=== PATIENT | male | born 1990 | race Caucasian/White ===

== ENCOUNTER 2017-03-28 14:13 | Emergency (ER) | payer BC ==
[2017-03-28 15:16] VITALS: BP 122/77
--- NOTE | 2017-03-28 16:52 | UC ---
Pablo Chappell Benjamin, scribed for Shayla Payne MD on 03/28/17 at 1630 . Abdominal Pain Male HPI - HPI Summary HPI Summary: 26yo male c/o having abdominal pain for 3 days and diarrhea with nausea, fatigue , indigestion, and foul-smelling burps for 2 days. Pt had giardia 1 year ago in [place] and pt describes that todays symptoms are similar to his giardia 1 year ago. No blood noticed in his stool, and pt denies fever. States he lives in [place] and is on city water and has not traveled, and no one else he is close to is ill. He has not been on antibiotics recently. - History of Current Complaint Chief Complaint: UCGI Stated Complaint: DIARRHEA Hx Obtained From: Patient Onset/Duration: Gradual Onset, Lasting Days - 2-3 days, Still Present Timing: Constant Severity Initially: Mild Severity Currently: Mild Pain Intensity: 5 Pain Scale Used: 0-10 Numeric Location: Diffuse Radiates: No Character: Cramping Aggravating Factor(s):: Nothing Alleviating Factor(s): Nothing Associated Signs And Symptoms: Positive: Nausea, Diarrhea, Other - fatigue. Negative: Fever, Blood in Stool, Vomiting Similar Episode/Dx As:: giardia, in [place] - Allergies/Home Medications Allergies/Adverse Reactions: Allergies Allergy/AdvReac Type Severity Reaction Status Date / Time No Known Allergies Allergy Verified 03/28/17 15:17 Home Medications: Home Medications NK [No Home Medications Reported] 03/28/17 [History Confirmed 03/28/17] PMH/Surg Hx/FS Hx/Imm Hx Previously Healthy: No GI/ History: Other Other GI/ History: giardia - Surgical History Surgical History: None - Family History Known Family History: Negative: Cardiac Disease, Diabetes - Social History Occupation: Student - has been in [place] one year from [place] Lives: Alone Alcohol Use: Occasionally Substance Use Type: None Smoking Status (MU): Never Smoked Tobacco Review of Systems Constitutional: Fatigue Skin: Negative Eyes: Negative ENT: Negative Respiratory: Negative Cardiovascular: Negative Gastrointestinal: Abdominal Pain, Diarrhea, Nausea Genitourinary: Negative Motor: Negative Neurovascular: Negative Musculoskeletal: Negative Neurological: Negative Psychological: Negative All Other Systems Reviewed And Are Negative: Yes Physical Exam Triage Information Reviewed: Yes Appearance: Well-Appearing, No Pain Distress, Well-Nourished Vital Signs: Initial Vital Signs Temp 98.5 F 03/28/17 15:13 Pulse 90 03/28/17 15:13 Resp 18 03/28/17 15:13 BP 122/77 03/28/17 15:13 Pulse Ox 97 03/28/17 15:13 Vital Signs Reviewed: Yes Eyes: Positive: Conjunctiva Clear ENT: Positive: Hearing grossly normal. Negative: Muffled/hoarse voice Neck: Positive: Supple, Nontender Respiratory: Positive: Lungs clear, Normal breath sounds, No respiratory distress, No accessory muscle use Cardiovascular: Positive: RRR, No Murmur, Pulses Normal Abdomen Description: Positive: Nontender, No Organomegaly, Soft. Negative: Bruit, CVA Tenderness (R), CVA Tenderness (L), Distended, Guarding, Hernia @, Hepatomegaly, McBurney's Point Tenderness, Peritoneal Signs, Pulsatile Mass, Splenomegaly Bowel Sounds: Positive: Present Musculoskeletal: Positive: Strength Intact, ROM Intact Neurological: Positive: Alert, Muscle Tone Normal Psychological: Positive: Age Appropriate Behavior Skin: Negative: rashes Re-Evaluation - Re-Evaluation First Eval Re-Evaluation Time: 16:45 Change: Unchanged - pt was able to provide stool sample, soft, brown, sent for studies. Abd Pain Male Course/Dx - Course Course Of Treatment: Reviewed pt's medications list and allergies. Elevated blood pressure. - Differential Dx/Clinical Impression Differential Diagnosis/HQI/PQRI: Bowel Obstruction, Diverticulitis, Other - gastroenteritis infectious colitis Provider Diagnoses: Acute Diarrhea. abdominal pain. High blood pressure without diagnosis of hypertension. Discharge - Discharge Plan Condition: Stable Disposition: HOME Patient Education Materials: Acute Diarrhea (ED), Loperamide (By mouth) Additional Instructions: The stool samples have been sent to the lab and we will notify you if you need further treatment based on those results. You may take loperamide as directed for the diarrhea if you do not have a fever. RETURN TO URGENT CARE FOR ANY NEW OR WORSENING SYMPTOMS. The documentation as recorded by the Pablo contreras Benjamin accurately reflects the service I personally performed and the decisions made by me, Shayla Payne MD.
== END 2017-03-28 16:51 | disposition home or self-care (01) ==
LOC: UCEAST 14:13
DX: R19.7 Diarrhea, unspecified (principal); R10.9 Unspecified abdominal pain; R03.0 Elevated blood-pressure reading, without diagnosis of hypertension
CPT/HCPCS: 87045; 87046; 87077; 87328; 87329; 87899; 99201; G0463

== ENCOUNTER 2017-04-13 14:30 | Emergency (ER) | payer BC ==
[2017-04-13 14:46] VITALS: BP 118/71
--- NOTE | 2017-04-13 15:04 | UC ---
Abdominal Pain Male HPI - HPI Summary HPI Summary: PT WITH OVER 2 WEEKS OF SOFT/WATERY STOOLS ABOUT 2-3 TIMES DAILY PRECEDED BY CRAMPY ABDOMINAL PAIN. NO FEVER, NAUSEA OR VOMITING. FEELS WEAK AND TIRED. APPETITE IS DOWN BUT HAS NOT NOTICED ANY WEIGHT LOSS. NO BLOOD PER RECTUM. NO RECENT TRAVEL, ANTIBIOTICS OR NEW FOODS. NO URINARY SX. PT HAS [place] WATER. FEELS SIMILAR TO WHEN HE HAD GIARDIA ABOUT 1 YEAR AGO. WAS SEEN HERE 03/28/17 FOR THIS AND HAD STOOL STUDIES SENT. ALL NEGATIVE EXCEPT FOR FECAL LACTOFERRIN. IS BACK HERE DUE TO PERSISTENT SX. STATES NO IMPROVEMENT AT ALL. - History of Current Complaint Stated Complaint: DIARRHEA NAUSEA Time Seen by Provider: 04/13/17 14:40 Hx Obtained From: Patient Onset/Duration: Gradual Onset, Lasting Weeks, Still Present Timing: Constant Severity Initially: Moderate Severity Currently: Moderate Pain Intensity: 0 Pain Scale Used: 0-10 Numeric Location: Diffuse Radiates: No Character: Cramping Aggravating Factor(s):: Nothing Alleviating Factor(s): Nothing Associated Signs And Symptoms: Positive: Decreased Appetite, Diarrhea. Negative : Fever, Back Pain, Constipation, Blood in Stool, Urinary Symptoms, Nausea, Vomiting - Allergies/Home Medications Allergies/Adverse Reactions: Allergies Allergy/AdvReac Type Severity Reaction Status Date / Time No Known Allergies Allergy Verified 04/13/17 14:47 PMH/Surg Hx/FS Hx/Imm Hx Previously Healthy: Yes - Surgical History Surgical History: None - Family History Known Family History: Negative: Cardiac Disease, Hypertension, Diabetes - Social History Alcohol Use: Occasionally Substance Use Type: None Smoking Status (MU): Never Smoked Tobacco Review of Systems Constitutional: Fatigue Respiratory: Negative Cardiovascular: Negative Gastrointestinal: Abdominal Pain, Diarrhea Genitourinary: Negative All Other Systems Reviewed And Are Negative: Yes Physical Exam Triage Information Reviewed: Yes Appearance: Well-Appearing, No Pain Distress, Well-Nourished Vital Signs: Initial Vital Signs Temp 98.0 F 04/13/17 14:42 Pulse 69 04/13/17 14:42 Resp 12 04/13/17 14:42 BP 118/71 04/13/17 14:42 Pulse Ox 99 04/13/17 14:42 Vital Signs Reviewed: Yes Eyes: Positive: Conjunctiva Clear ENT: Positive: Hearing grossly normal Neck: Positive: Supple Respiratory Exam: Normal Cardiovascular Exam: Normal Abdomen Description: Positive: Soft, Other: - TTP LLQ AND SUPRAPUBIC WITH VOLUNTARY GUARDING. NO RIGIDITY OR REBOUND. Negative: CVA Tenderness (R), CVA Tenderness (L), Distended Bowel Sounds: Positive: Present Musculoskeletal: Positive: No Edema Neurological: Positive: Alert Psychological: Positive: Age Appropriate Behavior Skin: Negative: rashes Abd Pain Male Course/Dx - Differential Dx/Clinical Impression Provider Diagnoses: DIARRHEA Discharge - Discharge Plan Condition: Stable Disposition: HOME Prescriptions: metroNIDAZOLE TAB* [Flagyl 250 mg TAB*] 250 mg PO TID #21 tab Patient Education Materials: Acute Diarrhea (ED) Referrals: [facility] [Primary Care Provider] - If Needed Additional Instructions: YOUR STOOL STUDIES WERE ONLY POSITIVE FOR LACTOFERRIN WHICH IS AN INDICATOR OF INFLAMMATION. GIVEN YOUR PROTRACTED COURSE OF SYMPTOMS WILL TREAT WITH METRONIDAZOLE TO SEE IF YOU IMPROVE. FOLLOW-UP WITH GI BELOW. [facility] Address: [address], [place] [address]
== END 2017-04-13 15:17 | disposition home or self-care (01) ==
LOC: UCEAST 14:30
DX: R19.7 Diarrhea, unspecified (principal)
CPT/HCPCS: 99212; G0463